=== PATIENT | male | born 1995 | race Caucasian/White ===

== ENCOUNTER 2017-12-13 13:13 | Emergency (ER) | payer OTHER ==
[~2017-12-13] VITALS: Ht 179.1 cm; Wt 86.3 kg
[2017-12-13 13:22] VITALS: TEMP 36.6; Ht 179.1 cm; Wt 86.3 kg
[2017-12-13 14:01] VITALS: BP 128/82; PULSE 64; O2SAT 99
--- NOTE | 2017-12-13 18:24 | EMERGENCY ROOM VISIT NOTE ---
History First contact with patient: 13:28 Chief Complaint: SHOULDER PAIN Stated Complaint: LEFT SHOULDER PAIN History of Present Illness The patient is a 22 year old male who presents to the Emergency Room with complaints of left shoulder pain after injuring himself yesterday while skiing. He fell, landing on an outstretched arm. He has had persisting pain posteriorly in the left shoulder. He denies any anterior pain. He does note that there is an asymmetry in his AC joint, but he thinks this has been present since he was a small child. Right-hand dominant. No numbness or tingling. Male friend accompanies him today. No treatment yet. He denies any history of dislocation. He denies any restriction in motion at this time. Review of Systems REVIEW OF SYSTEM: HEENT: No dizziness, visual problems, hearing loss, or tinnitus. There is no difficulty swallowing and no oral lesions are present. PULMONARY: No cough, shortness of breath, sputum production or hemoptysis. CARDIOVASCULAR: No chest pain, palpitations, shortness of breath or peripheral edema. GASTROINTESTINAL: No diarrhea, constipation, nausea, vomiting, or abdominal pain. GENITOURINARY: No dysuria, frequency, urgency or nocturia. NEUROLOGIC: No weakness, muscle tenderness, epilepsy or history of neurological problems. MUSCULOSKELETAL: No history of joint tenderness/swelling. No history of arthritis or arthralgias. SKIN: No rashes or lesions. PSYCHIATRIC: No history of depression or mental illness. ENDOCRINE: No history of diabetes, thyroid disorders, or abnormal hair growth. Past Medical/Surgical History Previous surgeries: None. Medical history: Unremarkable Family History Noncontributory. Social History Smoking Status: Never Smoker Smokeless Tobacco Use: No Drug Use: none Marital Status: single Housing Status: lives with friends Occupation Status: [employer] student Current/Historical Medications No Active Prescriptions or Reported Meds Allergies Coded Allergies: No Known Allergies (Unverified , 12/13/17) Physical Exam Vital Signs Date Time Temp Pulse Resp B/P (MAP) Pulse Ox O2 Delivery O2 Flow Rate FiO2 12/13/17 14:01 64 20 128/82 99 12/13/17 13:22 36.6 69 17 129/76 97 Room Air Physical Exam Well-developed, well-nourished, muscular young male, in no acute distress. Sitting on a bed. Alert and oriented. Skin:Warm and dry with good turgor. No rashes or lesions. No ecchymosis or erythema. The patient is not diaphoretic. No abrasions. Musculoskeletal: Well muscled individual. He has a prominent left AC joint. It is nontender to touch. He does have some mild discomfort with palpation over the subacromial space. No pain with palpation over his proximal biceps tendon. Full range of motion of the shoulder including overhead reach for abduction and forward flexion. Excellent symmetric external rotation as well as internal rotation with behind the back reach. Minor discomfort with [place] testing. No pain with Near impingement or supraspinatus testing. No pain with shoulder pro-traction or retraction. Excellent biceps strength without discomfort. No pain with palpation over the posterior rotator cuff musculature. No pain with palpation over the anterior or posterior glenohumeral joint. Neurologic: Gross sensation is intact across the left arm by soft touch. Peripheral pulses are 2+. Medical Decision & Procedures ED Course Patient was educated regarding today's findings. Conservative care measures were discussed. I do not think imaging is required at this point. He has good motion and good strength. He likely irritated his rotator cuff with his fall. I do not suspect full-thickness tear at this time. He was inquiring about weightlifting activity. I suggested he restrict his activity to below shoulder level for the next week. We did discuss specific lifts such as inclined bench, overhead press, and pull downs. These should be avoided. If symptoms are not improving over the next week, he should follow-up with orthopedics for further evaluation and possible PT referral. Return to the ED for any acute changes. Tylenol and Motrin every 6 hours as needed for mild discomfort. Medical Decision Possibility of fracture, AC joint separation, glenohumeral subluxation, rotator cuff tear, rotator cuff tendinopathy, and biceps tendinopathy were considered among others. Impression Primary Impression: Accidental fall from skis Additional Impression: Tendinopathy of right rotator cuff Departure Information Dispostion Home / Self-Care Condition GOOD Prescriptions No Active Prescriptions or Reported Meds Referrals Rai Crooks M.D. Forms HOME CARE DOCUMENTATION FORM, MOTRIN USE, TYLENOL USE, IMPORTANT VISIT INFORMATION Patient Instructions My [employer] Additional Instructions Ice intermittently 3 days, then use moist heat Gentle motion daily Avoid heavy lifting overhead for the next week Motrin 600 mg and Tylenol 650 mg every 6 hours as needed for discomfort If symptoms have not improved within a week, call the orthopedist for further evaluation Problem Qualifiers
== END 2017-12-13 14:03 | disposition home or self-care (01) ==
LOC: C.EDB 13:17 → C.EDD 14:03
DX: M75.91 Shoulder lesion, unspecified, right shoulder (principal); W00.0XXA Fall on same level due to ice and snow, initial encounter; Y92.89 Other specified places as the place of occurrence of the external cause; Y93.23 Activity, snow (alpine) (downhill) skiing, snowboarding, sledding, tobogganing and snow tubing